=== PATIENT | male | born 1940 | race Caucasian/White ===

== ENCOUNTER 2016-07-07 09:40 | Outpatient (CLI) | payer MEDICARE, BC ==
[2016-07-07 11:04] LABS: Anion Gap 12 mmol/L (10-20); BUN (Urea Nitrogen) 20 mg/dL (8.4-25.7); Calc. Creatinine Clearance 0 mL/min (70-130); Calcium 8.8 mg/dL (7.8-10.44); Carbon Dioxide 26 mmol/L (23-31); Chloride 110 mmol/L (98-107); Estimated GFR-MDRD 69; Glucose 92 mg/dL (83-110); Potassium 4.4 mmol/L (3.5-5.1); Sodium 144 mmol/L (136-145)
[2016-07-07 12:13] LABS: #Basophils 0.1 thou/uL (0.0-0.2); #Lymphocytes 1.5 thou/uL (1.20-3.40); #Monocytes 0.7 thou/uL (0.11-0.59); #Neutrophils 5.2 thou/uL (1.40-6.50); %Basophils 0.7 % (0.0-1.0); %Eosinophils 0.5 % (0.0-10.0); %Monocytes 9.3 % (0.0-10.0); %Neutrophils 69.4 % (42.0-75.0); Hemoglobin 15.6 g/dL (14.0-18.0); Mean Corpuscular HGB CONC 32.1 g/dL (32.0-36.0); Mean Corpuscular Hemoglobin 30.4 pg (27.0-31.0); Mean Corpuscular Volume 94.7 fl (80.0-94.0); Mean Platelet Volume 7.8 fL (7.4-10.4); Platelet Count 194 thou/uL (130-400); RBC Distribution Width 15.2 % (11.5-14.5); Red Blood Cell (RBC) Count 5.16 mill/uL (4.70-6.10); White Blood Cell (WBC) Count 7.5 thou/uL (4.8-10.8)
== END 2016-07-07 09:41 | disposition home or self-care (01) ==
LOC: HPCALD 09:40
PROVIDERS: ATTEND Family Medicine
DX: R31.0 Gross hematuria (principal)
CPT/HCPCS: 36415; 80048; 85025; 87086

== ENCOUNTER 2016-07-12 22:04 | Emergency (ER) | payer MEDICARE, BC ==
[2016-07-12 22:32] LABS: Bilirubin Negative (Negative); Blood, Urine Small (Negative); Clarity Clear (Clear); Glucose, Urine (Dipstick) Negative (Negative); Leukocyte Small (Negative); Nitrite Negative (Negative); Protein, Urine (Dipstick) Negative (Neg-Trace); Urobilinogen 0.2 mg/dL (0.2-1.0)
[2016-07-12 22:40] LABS: Bacteria/HPF 1+ HPF (None Seen); RBC/HPF 0-3 HPF (0-3); Squamous Epithelial 0-3 HPF (0-3)
[2016-07-12] MEDS ORDERED: HYDROcodone/Acetaminophen 10/325 mg Tablet ONE (23:24)
[2016-07-12] MEDS ORDERED: Ketorolac Tromethamine 30 MG/ML VIAL ONE (23:25)
--- NOTE | 2016-07-13 07:03 | CT ---
PRELIMINARY REPORT/[facility]/EMERGENCY AFTER HOURS PROCEDURE: EXAM: CT Abdomen and Pelvis Without Intravenous Contrast CLINICAL HISTORY: 75 years old, male; Pain; Abdominal pain; Flank; Right lower quadrant (rlq); Patient HX: Pt having s harp right flank pain started today. TECHNIQUE: Axial computed tomography images of the abdomen and pelvis without intravenous contrast. This CT exa m was performed using one or more of the following dose reduction techniques: automated exposure con trol, adjustment of the mA and/or kV according to patient size, and/or use of iterative reconstruction technique. Coronal reformatted images were created and reviewed. EXAM DATE/TIME: 07/12/2016 10:34 PM COMPARISON: No relevant prior studies available. FINDINGS: Limitations: Masses and lesions in the solid organs including traumatic injury and vascular and infe ctious pathology can be missed without intravenous contrast. Lower thorax: Right lower lobe 9 mm pulmonary nodule. Small hiatal hernia ABDOMEN: Liver: unremarkable for age Gallbladder and bile ducts: No gallbladder distention. No CBD dilation. Pancreas: unremarkable Spleen: unremarkable Adrenals: unremarkable Kidneys and ureters: Right nephrolithiasis. Mild right hydronephrosis from right UVJ 2 mm stone. Left renal cortical and parapelvic cysts. Stomach and bowel: No obstruction. Appendix: Not seen PELVIS: Bladder: Urinary bladder decompressed Reproductive: Slightly enlarged prostate with hypertrophy of the lobe of Dodie. ABDOMEN and PELVIS: Intraperitoneal space: No ascites. No pneumoperitoneum. Bones/joints: Multiple osteosclerotic foci Soft tissues: Fat enters umbilicus. Vasculature: No abdominal aortic aneurysm. Lymph nodes: Retroperitoneal and pelvic lymphadenopathy most pronounced left iliac chain IMPRESSION: - Right nephrolithiasis. Mild right hydronephrosis from right UVJ 2 mm stone. - Adenopathy and osteosclerosis worrisome for metastatic disease. - Right lower lobe 9 mm pulmonary nodule. Thank you for allowing us to participate in the care of your patient. Dictated and Authenticated by: Haider Land MD 07/12/2016 11:03 PM Central Time ([place] \T\ [place]) FINAL REPORT CT ABDOMEN AND PELVIS WITHOUT CONTRAST: Date: 07/12/16 Comparison made with the 11/22/15 CT of the chest. As noted previously, there is a small nodule in the right lower lobe. It seems slightly larger today and measures about 10.0 mm in size. The fluid collection seen previously along the right posterolat eral hemithorax has resolved. There are no effusions. Right hydronephrosis is present secondary to a small distal right ureteral calculus measuring about 5.0 mm in size near the right UVJ. There is at least one tiny calculus remaining in the right kidney . The left kidney shows some cysts and parapelvic cysts. Without IV contrast, it would be difficult to see any solid masses. The liver, spleen, pancreas, and gallbladder show no acute findings. A tiny right adrenal mass seen on the 2016 study is difficult to assess well in this noncontrast study, but the left adrenal seems to be slightly enlarged. The aorta is normal in caliber. Of considerable concern on this study is abundance of paraaortic and pericaval adenopathy that yamil nues on into the iliac chains bilaterally. In addition, there are several lumbar vertebra that have sclerotic areas within it that are suspicious for metastatic disease. There is considerable degenera tive change throughout the spine otherwise. CT of the pelvis was remarkable for some of the iliac chain adenopathy, some nodes of which are frankie uring up to 3.0 cm in size. Otherwise, no pelvic masses were seen. The patient's prostate seems rath er generous in size and not entirely uniform. It would be worth being checked. IMPRESSION: 1. 5.0 mm distal right ureteral calculus causing mild right hydronephrosis. 2. Tiny, nonobstructing calculus in the right kidney. Multiple cystic areas seen in the left kidney . 3. Abundance of paraaortic and pericaval adenopathy, as well as iliac chain adenopathy. This, taken in conjunction with sclerotic areas seen in the lumbar spine, raise a significant question of metas tatic disease. The prostate, in particular, would be worth checking. 4. 10.0 mm right lower lobe nodule which seems slightly larger than on the 2016 CT of the chest. Findings in agreement with preliminary reading by Kiara. POS: HOME
== END 2016-07-13 | disposition home or self-care (01) ==
LOC: BURERS 22:04
DX: N13.2 Hydronephrosis with renal and ureteral calculous obstruction (principal); I10 Essential (primary) hypertension; Z79.82 Long term (current) use of aspirin; Z79.899 Other long term (current) drug therapy
CPT/HCPCS: 74176; 81003; 81015; 87086; 96372; J1885

== ENCOUNTER 2017-04-25 17:22 | Emergency (ER) | payer MEDICARE, BC ==
[2017-04-25 17:56] LABS: Bilirubin Negative (Negative); Blood, Urine Negative (Negative); Clarity Clear (Clear); Glucose, Urine (Dipstick) Negative (Negative); Leukocyte Small (Negative); Nitrite Negative (Negative); Protein, Urine (Dipstick) Negative (Neg-Trace); Urobilinogen 0.2 mg/dL (0.2-1.0)
[2017-04-25 18:08] LABS: RBC/HPF 0-3 HPF (0-3)
[2017-04-25 18:09] LABS: Bacteria/HPF Rare-Few HPF (None Seen); Crystals/HPF None Seen HPF (Negative); Hyaline Casts/LPF NONE SEEN LPF (0-3 Hyaline); Other Casts/LPF None Seen LPF (0-3 Hyaline); Oval Fat Bodies/HPF None Seen HPF (None Seen); Renal Epithelial None Seen HPF (0-3); Sperm/HPF None Seen HPF (None Seen); Squamous Epithelial 0-3 HPF (0-3); Transitional Epithelial NONE SEEN HPF (0-3); Trichomonas/HPF None Seen HPF (None Seen); Yeast-All Forms None Seen HPF (None Seen)
[2017-04-25] MEDS ORDERED: traMADol HCl 50 MG TAB ONE (18:48)
--- NOTE | 2017-04-25 21:59 | CT ---
CT ABDOMEN AND PELVIS WITHOUT CONTRAST: Date: 04/25/17 Comparison made with the 07/12/16 study. Axial slices were acquired, then coronal and sagittal reconstructions were done. No oral or IV contra st was used. FINDINGS: No infiltrates or effusions seen in the lung bases. There are several small pulmonary nodules seen bi laterally in all lobes. The largest is in the right lower lobe which is 7.0 mm in size. It is actuall y a little smaller than before. The liver, spleen, pancreas, adrenal glands, and aorta show no acute findings. A hiatal hernia is pre sent. There is no obstruction on the right today or renal calculi. There is moderate left hydronephrosis an d hydroureter all the way down to the urinary bladder. Inside the bladder, there appears to be a mass near the left UVJ internally that may be originating from the prostate. In addition to these finding s, there is extensive paraaortic and pericaval adenopathy, as well as iliac adenopathy bilaterally. T hese findings were present before, but have advanced somewhat. The other change between now and then is presence of many more sclerotic areas in the spine and the pelvis. Findings suggest diffuse metast atic disease, probably of a prostatic origin given the sclerotic nature of the findings. There is als o moderately severe spinal stenosis at L4-L5 due to facet and ligamentous hypertrophy and a diffuse b ulging disc. The bowel is nondistended and shows no inflammatory change around it. No free air or free fluid seen. A minimal fat-filled umbilical hernia was present of no concern. There is a little bit of adenopathy in the mesentery. CT of the pelvis was remarkable for the findings already listed above. There were no inflammatory elissa nges or fluid. The prostate is enlarged and irregular. IMPRESSION: 1. Left hydronephrosis and hydroureter that appears to be due to a mass within the urinary bladder, probably of prostatic origin. No evidence of right-sided obstruction. 2. Multiple sclerotic areas in the spine and pelvis consistent with metastatic disease. These have i ncreased in size and number since 2017. 3. Extensive paraaortic and pericaval adenopathy, in addition to iliac adenopathy. Roughly similar t o before, but probably slightly more nevertheless. 4. Spinal stenosis at L4-L5. Findings discussed with Dr. Rosado at 1942 hours on 04/25/17. CODE CR. POS: HOME
== END 2017-04-25 20:32 | disposition home or self-care (01) ==
LOC: BURERS 17:22
DX: M54.5 Low back pain (principal); G89.29 Other chronic pain; C41.4 Malignant neoplasm of pelvic bones, sacrum and coccyx; D49.2 Neoplasm of unspecified behavior of bone, soft tissue, and skin; I10 Essential (primary) hypertension; Z79.82 Long term (current) use of aspirin; Z79.899 Other long term (current) drug therapy
CPT/HCPCS: 74176; 81003; 81015

== ENCOUNTER 2017-09-13 22:37 | Emergency (ER) | payer MEDICARE, BC ==
[2017-09-13] MEDS ORDERED: Fentanyl 100 MCG/2 ML VIAL ONE (22:46)
[2017-09-13 23:09] LABS: ALT (SGPT) 8 U/L (8-55); AST (SGOT) 11 U/L (5-34); Acetaminophen Less than 6.0 mcg/mL (10.0-30.0); Albumin 3.7 g/dL (3.4-4.8); Alkaline Phosphatase 286 U/L (40-150); Anion Gap 19 mmol/L (10-20); BUN (Urea Nitrogen) 33 mg/dL (8.4-25.7); Bilirubin, Total 0.4 mg/dL (0.2-1.2); CK (CPK) 47 U/L (30-200); Calc. Creatinine Clearance 0 mL/min (70-130); Calcium 8.9 mg/dL (7.8-10.44); Carbon Dioxide 19 mmol/L (23-31); Chloride 108 mmol/L (98-107); Estimated GFR-MDRD 38; Globulin 3.5 g/dL (2.4-3.5); Glucose 159 mg/dL (83-110); Lipase 26 U/L (8-78); Potassium 4.6 mmol/L (3.5-5.1); Protein, Total 7.2 g/dL (5.8-8.1); Salicylate Less than 8.0 mg/dL (15.0-30.0); Sodium 141 mmol/L (136-145)
[2017-09-13 23:10] LABS: CKMB 1.1 ng/mL (0-6.6); Troponin I 0.018 ng/mL (< 0.028)
[2017-09-13] MEDS ORDERED: Morphine 10 MG/ML VIAL ONE (23:11)
[2017-09-13 23:15] LABS: Alcohol Less than 10 mg/dL (Less than 10)
[2017-09-13] MEDS ORDERED: Ondansetron HCl/PF 4 MG/2 ML Vial ONE (23:18)
[2017-09-13 23:19] LABS: Anisocytosis SLIGHT = 6-15 cells (100X) (0-5/hpf); Hemoglobin 13.5 g/dL (14.0-18.0); Lymphocytes 43 % (21-51); MDiff Complete? YES; Mean Corpuscular HGB CONC 34.9 g/dL (32.0-36.0); Mean Corpuscular Volume 85.9 fL (78.0-98.0); Mean Platelet Volume 6.3 fL (7.4-10.4); Monocytes 8 % (0-10); Neutrophil 48 % (42-75); PLT Morphology Comment Appears Adequate; Platelet Count 280 thou/uL (130-400); RBC Distribution Width 16.6 % (11.5-14.5); Red Blood Cell (RBC) Count 4.51 mill/uL (4.70-6.10); Small Platelets SLIGHT; White Blood Cell (WBC) Count 10.5 thou/uL (4.8-10.8)
[2017-09-13] MEDS ORDERED: Dexamethasone 4 mg/ml Vial ONE ×2 (23:53)
[2017-09-14] MEDS ORDERED: Fentanyl 100 MCG/2 ML VIAL ONE (00:06)
--- NOTE | 2017-09-14 08:02 | CT ---
PRELIMINARY REPORT/[facility]/EMERGENTY AFTER-HOURS PROCEDURE CT Angiography Chest With Intravenous Contrast CLINICAL HISTORY: 77 years old, male; Signs and symptoms; Dyspnea; Other: Diaphoretic; Patient HX: Diaphoretic rt leg p ain + d dimer; Additional info: Pt has ofelia morales fround out post scan/reviewed patient's previous note s and radiology studies. Patient has advanced metastatic cancer seen on previous studies. Has stevenson cartery been told multiple times about the findings. I reviewed previous findings with the patient and sp ouse. Seems to be some lack of understanding and/or acceptance about the nature and severity of his c ondition. Directly stated the facts to patient and spouse, met with some resistance. TECHNIQUE: Axial computed tomographic angiography images of the chest with intravenous contrast using pulmonary embolism protocol. MIP reconstructed images were created and reviewed. CONTRAST: 100 mL of [id number] administered intravenously. COMPARISON: No relevant prior studies available. FINDINGS: Pulmonary arteries: Unremarkable. No pulmonary embolism. Aorta: Calcifications in the rivera of the aorta and other arteries are consistent with atherosclerosi s. No thoracic aortic aneurysm or dissection is identified. Lungs: Small low density areas adjacent to left subscapularis muscle are likely bullae. Ground glass opacities in the lungs may be due to under expansion and edema. There is evidence of air trapping. Th ere is a consolidation in the left upper lobe. Multiple bilateral pulmonary nodules m 2.1 x 1.4 cm in the left lung base. Pleural space: Unremarkable. No significant effusion. No pneumothorax. Heart: There are widespread coronary artery calcifications. The heart is enlarged. Mediastinum: There is a small hiatal hernia. Thyroid: Subcentimeter thyroid lesions are indeterminate. Bones/joints: There are multiple sclerotic bone lesions. There are degenerative changes in the spine. No acute fracture. No dislocation. Soft tissues: Unremarkable. Lymph nodes: An enlarged mediastinal lymph node measures 1.9 x 1.4 cm. There are confluent enlarged l eft hilar lymph nodes with overall measurements 2.6 x 1.8 cm. IMPRESSION: 1. Multiple bilateral lung nodules consistent with metastases. 2. Widespread osseous metastases. 3. Mediastinal and left hilar lymphadenopathy. 4. No pulmonary embolism identified. 5. No thoracic aortic aneurysm or dissection identified. 6. Additional findings as above. CT Angiography Abdomen and Pelvis With Intravenous Contrast TECHNIQUE: Axial computed tomographic angiography images of the abdomen and pelvis with intravenous contrast. Al l CT scans at this facility use at least one of these dose optimization techniques: automated exposur e control; mA and/or kV adjustment per patient size (includes targeted exams where dose is matched to clinical indication); or iterative reconstruction. 3D reconstructed images were created and reviewed . CONTRAST: 100 mL of [id number] administered intravenously. 100 mL of [id number] administered intravenously. COMPARISON: No relevant prior studies available. FINDINGS: VASCULATURE: Aorta: Calcifications in the rivera of the aorta and other arteries are consistent with atherosclerosi s. No abdominal aortic aneurysm or dissection is identified. Celiac trunk and mesenteric arteries: No acute findings. No occlusion or significant stenosis. Renal arteries: No acute findings. No occlusion or significant stenosis. Iliac arteries: No acute findings. No occlusion or significant stenosis. ABDOMEN: Liver: There is evidence of fatty infiltration of the liver. Gallbladder and bile ducts: Unremarkable. No calcified stones. No ductal dilation. Pancreas: Unremarkable. No ductal dilation. No mass. Spleen: Unremarkable. No splenomegaly. Adrenals: Unremarkable. No mass. Kidneys and ureters: There is severe left hydronephrosis with hydroureter. The cause of ureteral obst ruction is apparently the pelvic mass. Stomach and bowel: Diverticulosis is identified in the colon. No obstruction. No mucosal thickening. PELVIS: Appendix: The appendix is not identified. Bladder: There is a 6.0 x 5.5 cm lobulated mass in the pelvis. It contains calcifications and invades the urinary bladder. Reproductive: See above. ABDOMEN and PELVIS: Intraperitoneal space: Unremarkable. No significant fluid collection. No free air. Bones/joints: There are widespread sclerotic osseous lesions. No acute fracture. No dislocation. Soft tissues: A small hernia in the umbilical area contains fat. Lymph nodes: There is confluent retroperitoneal lymphadenopathy. The largest lymph node measures 3.6 x 2.9 cm. Enlarged bilateral pelvic sidewall lymph nodes measure up to 6.8 x 2.8 cm. There is left in guinal lymphadenopathy. IMPRESSION: 1. Lobulated pelvic mass invading the urinary bladder and causing left ureteral obstruction. 2. Widespread retroperitoneal and pelvic sidewall lymphadenopathy. 3. Widespread osseous metastatic disease. 4. No abdominal aortic aneurysm or dissection identified. 5. Additional findings as above. Thank you for allowing us to participate in the care of your patient. Dictated and Authenticated by: Tramaine Akbar MD 09/14/2017 1:06 AM Central Time ([place] & [place]) FINAL REPORT CT AORTIC DISSECTION PROTOCOL: DATE: 09/13/17. COMPARISON: Comparison is made with the prior study dated 04/25/17. That exam showed diffuse metastatic disease o f the bones, urinary bladder, and extensive adenopathy. FINDINGS: Axial slices were acquired today after giving IV contrast. Coronal and sagittal reconstructions were then done. Because of the findings, the scan covered the entire abdomen and most of the pelvis. There is reasonably good opacification of the aorta that shows no evidence of dissection or aneurysm. Arteriosclerotic change is seen throughout it. There is normal filling of the celiac artery and me senteric arteries. Both renal arteries fill appropriately. The iliac arteries fill appropriately. Thus, there is no sign of aortic disease beyond arteriosclerosis. The thoracic portion of the CT shows several pulmonary nodules, bilateral, with the largest measuring about 2 cm in the left upper lobe. There is significant adenopathy present with 1 node just lateral to the aortic arch measuring up to about 8.4 cm in size. There is a density adjacent to this that i s probably collapsed atelectatic lung. There are no effusions. No filling defects were seen in the pulmonary arteries to suggest emboli. No pericardial effusion is seen.. Areas of sclerosis and a fe w lytic areas are seen within bone, spine, and ribs, consistent with metastatic disease. The abdominal portion of the CT suggests a small hiatal hernia. No focal hepatic mass was seen. Gal lbladder appears normal as does the pancreas and spleen. There appears to be a small 2 cm mass in th e right adrenal gland that I do not appreciate on the April study and there may be a small one on the left. The right kidney showed no acute change. The left kidney shows longstanding hydronephrosi s and thinning of its cortex. There is massive paraaortic and pericaval adenopathy as before. This continues down into the pelvis with large amounts of iliac adenopathy, more on the left than the righ t. CT of the pelvis shows the large mass protruding into the urinary bladder, probably of prostatic orig in with adjacent severe adenopathy. Some kym groups are as big as 5-6 cm in size. No free fluid i s seen. There are advanced changes of metastatic disease in the bony pelvis and lumbar spine consist ing of lytic or sclerotic lesions, mainly sclerotic. There is severe spinal stenosis at the L4-L5 le julieta. Otherwise, I do not see any gross spinal canal obstruction. IMPRESSION: 1. No evidence of aortic dissection or aneurysm. 2. Evidence of diffuse metastatic disease including pulmonary nodules, changes in the bones, and calli nopathy. 3. Enlarged nodes are most prominent in the paraaortic, pericaval, and iliac chains, particularly th e left iliac region. There are also mesenteric nodes present as well as mediastinal nodes. 4. Severe spinal stenosis of L3-L4. 5. Severe left hydronephrosis, longstanding, due to mass in the urinary bladder that is most likely of prostatic origin. Note, overall, the appearance of these findings has increased and worsened since the 04/25/17 scan. N odes are more numerous and larger and there are more bony lesions than before. Report in agreement with preliminary reading by [facility]. POS: HOME
== END 2017-09-14 00:50 | disposition short-term general hospital (02) ==
LOC: BURERS 22:37
DX: G95.20 Unspecified cord compression (principal); E78.5 Hyperlipidemia, unspecified; I10 Essential (primary) hypertension; Z79.82 Long term (current) use of aspirin; Z79.899 Other long term (current) drug therapy
CPT/HCPCS: 71275; 80053; 80307; 82550; 82553; 83605; 83690; 84484; 85025; 85379; 93005; 96361; 96374; 96375; 96376; J1100; J2270; J2405; J3010

== ENCOUNTER 2017-09-28 16:52 | Emergency (ER) | payer MEDICARE, BC ==
[2017-09-28] MEDS ORDERED: Acetaminophen 500 MG TAB ONE (17:12)
[2017-09-28 17:21] LABS: #Monocytes 0.3 thou/uL (0.11-0.59); #Neutrophils 9.6 thou/uL (1.40-6.50); %Basophils 0.4 % (0.0-1.0); %Eosinophils 0.4 % (0.0-10.0); %Lymphocytes 9.4 % (21.0-51.0); %Monocytes 3.1 % (0.0-10.0); %Neutrophils 86.8 % (42.0-75.0); Hemoglobin 11.2 g/dL (14.0-18.0); Mean Corpuscular HGB CONC 34.8 g/dL (32.0-36.0); Mean Corpuscular Hemoglobin 29.7 pg (27.0-31.0); Mean Corpuscular Volume 85.2 fL (78.0-98.0); Mean Platelet Volume 6.4 fL (7.4-10.4); Platelet Count 302 thou/uL (130-400); RBC Distribution Width 16.3 % (11.5-14.5); Red Blood Cell (RBC) Count 3.77 mill/uL (4.70-6.10); White Blood Cell (WBC) Count 11.1 thou/uL (4.8-10.8)
[2017-09-28 17:39] LABS: ALT (SGPT) 37 U/L (8-55); AST (SGOT) 12 U/L (5-34); Albumin 3.2 g/dL (3.4-4.8); Alkaline Phosphatase 298 U/L (40-150); Anion Gap 18 mmol/L (10-20); BUN (Urea Nitrogen) 60 mg/dL (8.4-25.7); Bilirubin, Total 0.5 mg/dL (0.2-1.2); Calc. Creatinine Clearance 0 mL/min (70-130); Carbon Dioxide 21 mmol/L (23-31); Chloride 108 mmol/L (98-107); Estimated GFR-MDRD 26; Globulin 2.8 g/dL (2.4-3.5); Glucose 104 mg/dL (83-110); Sodium 142 mmol/L (136-145)
[2017-09-28 17:40] LABS: CKMB 1.3 ng/mL (0-6.6); Troponin I 0.017 ng/mL (< 0.028)
[2017-09-28 18:10] LABS: Bilirubin Negative (Negative); Blood, Urine Trace (Negative); Clarity Cloudy (Clear); Glucose, Urine (Dipstick) Negative (Negative); Leukocyte Large (Negative); Nitrite Negative (Negative); Protein, Urine (Dipstick) Negative (Neg-Trace); Urobilinogen 0.2 mg/dL (0.2-1.0); pH, Urine 5.5 (5.0-9.0)
[2017-09-28 18:14] LABS: Bacteria/HPF 1+ HPF (None Seen); Crystals/HPF None Seen HPF (Negative); Hyaline Casts/LPF NONE SEEN LPF (0-3 Hyaline); Other Casts/LPF None Seen LPF (0-3 Hyaline); Oval Fat Bodies/HPF None Seen HPF (None Seen); RBC/HPF 0-3 HPF (0-3); Renal Epithelial None Seen HPF (0-3); Sperm/HPF None Seen HPF (None Seen); Squamous Epithelial None Seen HPF (0-3); Transitional Epithelial NONE SEEN HPF (0-3); Trichomonas/HPF None Seen HPF (None Seen); Yeast-All Forms None Seen HPF (None Seen)
[2017-09-28] MEDS ORDERED: cefTRIAXone\\ROCEPHIN 1 GM VIAL ONE (18:22)
--- NOTE | 2017-09-28 21:18 | RAD ---
PORTABLE CHEST 09/28/17 Moderate cardiomegaly is present but the vessels do not seem congested. There are no large effusions. There is a very small amount of streaking in the lung bases bilaterally. It would be premature to co nfidently diagnose a pneumonia, through the areas might bear followup film. There are a few areas in the ribs that may be sclerotic. The patient has known osseous metastases. IMPRESSION: 1. Mild cardiomegaly without congestive change. 2. Minor basilar haziness which may or may not be significant. POS: HOME
== END 2017-09-28 20:17 | disposition short-term general hospital (02) ==
LOC: BURERS 16:52
DX: N39.0 Urinary tract infection, site not specified (principal); C61 Malignant neoplasm of prostate; E78.5 Hyperlipidemia, unspecified; I10 Essential (primary) hypertension; Z79.891 Long term (current) use of opiate analgesic; Z79.899 Other long term (current) drug therapy
CPT/HCPCS: 71045; 80053; 81003; 81015; 82553; 83605; 83880; 84484; 85025; 87040; 87077; 87086; 87149; 87186; 93005; 96361; 96374; J0696

== ENCOUNTER 2019-10-10 08:12 | Emergency (ER) | payer MEDICARE, BC ==
[2019-10-10] MEDS ORDERED: Furosemide 100 MG/10 ML VIAL ONE (08:53)
[2019-10-10 09:14] LABS: #Basophils 0.1 thou/uL (0.0-0.2); #Eosinphils 0.1 thou/uL (0.0-0.7); #Lymphocytes 0.6 thou/uL (1.20-3.40); #Monocytes 0.4 thou/uL (0.11-0.59); %Basophils 1.6 % (0.0-1.0); %Eosinophils 1.8 % (0.0-10.0); %Lymphocytes 10.9 % (21.0-51.0); %Monocytes 7.6 % (0.0-10.0); %Neutrophils 78.1 % (42.0-75.0); ALT (SGPT) 16 U/L (8-55); AST (SGOT) 15 U/L (5-34); Albumin 3.4 g/dL (3.4-4.8); Alkaline Phosphatase 369 U/L (40-110); Anion Gap 14 mmol/L (10-20); BUN (Urea Nitrogen) 24 mg/dL (8.4-25.7); Bilirubin, Total 0.5 mg/dL (0.2-1.2); Calc. Creatinine Clearance 0 mL/min (70-130); Calcium 8.2 mg/dL (7.8-10.44); Carbon Dioxide 22 mmol/L (23-31); Chloride 111 mmol/L (98-107); Estimated GFR-MDRD 49; Globulin 2.5 g/dL (2.4-3.5); Glucose 153 mg/dL (83-110); Hemoglobin 9.1 g/dL (14.0-18.0); Mean Corpuscular HGB CONC 28.4 g/dL (32.0-36.0); Mean Corpuscular Hemoglobin 25.3 pg (27.0-31.0); Mean Platelet Volume 8.8 fL (7.4-10.4); Platelet Count 226 thou/uL (130-400); Potassium 4.1 mmol/L (3.5-5.1); Protein, Total 5.9 g/dL (5.8-8.1); RBC Distribution Width 18.8 % (11.5-14.5); Sodium 143 mmol/L (136-145); White Blood Cell (WBC) Count 5.2 thou/uL (4.8-10.8)
[2019-10-10] MEDS ORDERED: Aspirin Chewable 81 MG TAB ONE (09:25)
[2019-10-10 09:28] LABS: Hypochromia SLIGHT = 6-15 cells (100X) (0-5/hpf); MDiff Complete? YES; Platelet Morphology Comment Appears Adequate
[2019-10-10 09:34] LABS: CKMB 4.1 ng/mL (0-6.6)
--- NOTE | 2019-10-10 19:28 | RAD ---
LEFT KNEE 4 VIEWS: Date: )10/10/2019 Swelling and reticulation of soft tissues is seen around the knee, especially laterally. There is poncho rly complete loss of the lateral joint space, even more so than was present on a 06/15/2017 film of t he leg. No clear fracture was noted. There was a small bulbous projection from the medial tibial plat eau, but looking at all other views, this does not appear to be definitely fractured. There is no lar ge joint effusion. Mild patellofemoral osteophytes represent. There is very slight lateral subluxatio n of the femoral condyles on the tibial plateau, probably a longstanding problem. This does not appea r much different than the 2018 film of the leg. IMPRESSION: Further narrowing of the lateral joint space and surrounding soft tissue swelling. POS: HOME
--- NOTE | 2019-10-10 19:30 | RAD ---
PORTABLE CHEST: Date: 10/10/2019 An AP portable film at 0828 hours is compared with the 09/28/2017 study. Mild cardiomegaly is about the same as before. Vessels are not clearly congested. There is a little s treaking in the right base that may be a minor infiltrate or even some fluid. The left lung is relati vely clear for a portable film and the patient being turned slightly. IMPRESSION: Mild cardiomegaly without clear congestive change. Minor right basilar streaking and/or fluid. POS: HOME
== END 2019-10-10 10:30 | disposition short-term general hospital (02) ==
LOC: BURERS 08:12
DX: I21.4 Non-ST elevation (NSTEMI) myocardial infarction (principal); I50.9 Heart failure, unspecified; I11.0 Hypertensive heart disease with heart failure; S89.92XA Unspecified injury of left lower leg, initial encounter; E78.5 Hyperlipidemia, unspecified; Z79.899 Other long term (current) drug therapy; W17.89XA Other fall from one level to another, initial encounter
CPT/HCPCS: 71045; 80053; 82553; 83605; 83880; 84443; 84484; 85025; 87040; 93005; 94760; 96374; J1940

== ENCOUNTER 2020-01-03 18:14 | Observation (INO) | payer MEDICARE, BC ==
[2020-01-03 19:02] LABS: #Eosinphils 0.1 thou/uL (0.0-0.7); #Monocytes 0.5 thou/uL (0.11-0.59); #Neutrophils 5.1 thou/uL (1.40-6.50); %Basophils 0.7 % (0.0-1.0); %Eosinophils 1.4 % (0.0-10.0); %Lymphocytes 15.2 % (21.0-51.0); %Monocytes 7.9 % (0.0-10.0); %Neutrophils 74.8 % (42.0-75.0); ALT (SGPT) Less than 7 U/L (8-55); AST (SGOT) 24 U/L (5-34); Albumin 3.7 g/dL (3.4-4.8); Alkaline Phosphatase 641 U/L (40-110); Anion Gap 17 mmol/L (10-20); BUN (Urea Nitrogen) 30 mg/dL (8.4-25.7); Bilirubin, Total 0.4 mg/dL (0.2-1.2); Calc. Creatinine Clearance 0 mL/min (70-130); Calcium 8.7 mg/dL (7.8-10.44); Carbon Dioxide 28 mmol/L (23-31); Chloride 98 mmol/L (98-107); Globulin 3.2 g/dL (2.4-3.5); Glucose 119 mg/dL (83-110); Hemoglobin 9.7 g/dL (14.0-18.0); Lipase 5 U/L (8-78); MDiff Complete? YES; Mean Corpuscular HGB CONC 28.9 g/dL (32.0-36.0); Mean Corpuscular Hemoglobin 24.5 pg (27.0-31.0); Mean Corpuscular Volume 84.6 fL (78.0-98.0); Mean Platelet Volume 7.5 fL (7.4-10.4); Ovalocytes SLIGHT = 2-5 cells (100X) (0-1/hpf); Platelet Count 248 thou/uL (130-400); Poikilocytosis SLIGHT = 6-15 cells (100X) (0-5/hpf); Potassium 3.9 mmol/L (3.5-5.1); Protein, Total 6.9 g/dL (5.8-8.1); RBC Distribution Width 19.7 % (11.5-14.5); Red Blood Cell (RBC) Count 3.96 mill/uL (4.70-6.10); Schistocytes SLIGHT = 2-5 cells (100X) (0-1/hpf); Sodium 139 mmol/L (136-145); Tear Drops SLIGHT = 2-5 cells (100X) (0-1/hpf); White Blood Cell (WBC) Count 6.8 thou/uL (4.8-10.8)
[2020-01-03 19:20] LABS: CKMB 1.3 ng/mL (0-6.6)
[2020-01-03] MEDS ORDERED: HYDROcodone/Acetaminophen 5/325 mg Tablet ONE (19:52)
[2020-01-03 19:53] LABS: Bilirubin Negative (Negative); Blood, Urine Negative (Negative); Clarity Clear (Clear); Glucose, Urine (Dipstick) Negative (Negative); Ketone, Urine Negative (Negative); Leukocyte Negative (Negative); Nitrite Negative (Negative); Protein, Urine (Dipstick) Negative (Neg-Trace); Urobilinogen 0.2 mg/dL (Less than 2)
--- NOTE | 2020-01-03 20:48 | RAD ---
LUMBAR SPINE THREE VIEWS: 01/03/20 While no fracture is seen, there are diffuse sclerotic lesions throughout the entire lumbosacral spin e and pelvis. The findings are consistent with the known metastatic diagnosis. The disc spaces are no rmal in height. The aorta and iliac arteries are densely calcified. A moderate amount of fecal materi al is seen in the right colon. IMPRESSION: No fractures, but numerous sclerotic metastatic foci are seen in the lumbosacral spine and pelvis. POS: HOME
--- NOTE | 2020-01-03 20:56 | CT ---
CT OF THE BRAIN WITHOUT CONTRAST: 01/03/20 Comparison is made with the prior study dated 10/10/19. The ventricles are normal in size for age and atrophy. Deep white matter lucency is typical of chroni c microvascular ischemia. There are also more focal low density lesions consistent with lacunar infar cts, especially in the right thalamus, left basal ganglia and left centrum semiovale. No bleeding, ma ss, or edema was seen. None of these findings seem much different than on the prior exam. No destruct silvia lesions are seen in the skull. The paranasal sinuses are clear. A few of the mastoid air cells ar e semiopaque. IMPRESSION: Chronic ischemic changes, including several areas of focal lacunar infarcts. No acute intracranial fi ndings. Preliminary report discussed with Dr. Winters at 1912 on 01/03/20. POS: HOME
[2020-01-03 21:36] LABS: Troponin I 0.034 ng/mL (< 0.028)
[2020-01-03 23:10] VITALS: BMI 33.4
[2020-01-04] MEDS: HYDROcodone/Acetaminophen 5/325 mg Tablet PO PRN ×4 (00:44→23:35)
[2020-01-04] MEDS: Tamsulosin HCl 0.4 MG CAP PO SCH ×2 (08:32→21:03)
[2020-01-04] MEDS: Furosemide 40 MG TAB PO SCH ×2 (08:32→21:03)
[2020-01-04] MEDS: Carvedilol 3.125 MG TAB PO SCH ×2 (08:32→21:03)
--- OUTSIDE RECORDS SUMMARY | 2020-01-04 12:46 | XMS | Patient Health Record ---
:1940 Author Organization [facility] Address [address] [place] [address] Care Team Providers Name Role Phone Seneff Unavailable [phone] Fernando Unavailable [phone] Parrent Unavailable [phone] Maraist Unavailable [phone] Toshia Unavailable [phone] De Luna Unavailable [phone] PROBLEMS Type Condition ICD9-CM [id number] Onset Condition SNOMED Code Notes Code Code Dates Status Problem Essential 401.1 Active 8044902 hypertension, benign Problem Iron deficiency 280.9 Active 30954951 anemia Problem *x*Seroma T14.8 Active 375799465 Problem Other N13.39 Active 66392924 hydronephrosis Problem Lymphadenopathy R59.1 Active 16660005 Problem Soft tissue mass M79.9 Active 153219866 Problem Elevated PSA R97.20 Active 867215371 Problem Noncompliance Z91.19 Active 5964239 Problem Metastatic C79.82 Active 57045811 malignant neoplasm to prostate ALLERGIES No Known Allergies ENCOUNTERS from 1940 to 2020-01-04 Encounter Location Date Provider Diagnosis [facility] Chronic Heart [address] [facility] [place] [address] Oct, 2019 [place] [address] IMMUNIZATIONS Vaccine Route Administration Date Status Dexamethasone Unknown Feb 05, 2012 Administered SOCIAL HISTORY Sex Assigned At : Social History Observation Description Sex Assigned At Unknown REASON FOR REFERRAL from 1940 to 2020-01-04 Referring Provider First Name Alice Referring Provider Last Name Fernando Referring Provider Specialty Urology Referring Provider email Referred Provider [facility] stem, Medical Records VITAL SIGNS from 1940 to 2020-01-04 Weight 190 lbs Oct, Height 66 in Oct, BMI 30.66 kg/m2 Oct, Heart Rate 72 /min Oct, Temperature 98.1 degrees Fahrenheit Oct, Oximetry 96% RA % Jan, Respiratory Rate 18 /min Jan, Blood pressure systolic 140 mm Hg Oct, Blood pressure diastolic 70 mm Hg Oct, MEDICATIONS Medication SIG (Take, Route, Start Date End Date Status Frequency, Duration) Lyrica 25 MG 2 capsules Orally Once a Act silvia day [place] 10-325 MG 1-2 tablets Orally every Not-Taking four to six hours prn for pain Docusate Sodium 100 MG 1 capsule as needed Orally Active Once a day Casodex 50 MG 1 tablet Orally Once a day Active Tramadol HCl 50 MG 1 tablet as needed Orally Active every 6 hrs Flomax 0.4 MG 1 capsule Orally twice a Ac tive day Aspirin 325 MG 1 tablet Orally Once a day Not-Taking Finasteride 5 MG 1 tablet Orally Once a day Active Losartan Potassium 50 mg 1 tablet Orally Once a day Jan, Not-Taking Bicalutamide 50 MG 1 tablet Orally Once a day Active Amlodipine Besylate 10 mg 1 tablet Orally Once a day Jan, Not-Taking Lupron Not-Taking FeroSul 325 mg once a day Orally Active PROCEDURES No Information RESULTS No Results REASON FOR VISIT referral, Casodex/FU (LM X 3), Hospital FU, pflow/pvr, Hospital fu , to discuss symptoms, r/s appt, needs MRI orders, Appt complaints/concerns, wanting to talk to someone, Maraist/MCR,BCBS/LBP, MRIwith Contrast, MRI Scheduling, NEURO EVAL/LEG PAIN, unable to urinate, Cx MACHINE MAINTENANCE SERVICER appt, Mass in back, Mass in back, Mass in back, Mass in back, REFILLS RX, [facility] follow up - 02-19-12- anemia, HGB,NON FASTING LAB, Patient wants to speak to you about referral, Iron Deficiency Anemia, UTI, Follow up - uticaria, ED Follow up - iron def anemia, Follow up - urticaria and hypertension, Weakness, shakes, DISC MEDS-PLEASE CALL, Rash, REFILL MEDS, REFILL ALL MEDS MEDICAL (GENERAL) HISTORY Type Description Date Medical History Hypertension Medical History metastatic prostate cancer Surgical History appendectomy childhood Surgical History mass on back Hospitalization History [facility] snake bite 1954 Hospitalization History surgery related Hospitalization History sepsis with hydronephrosis 09/2017 Goals Section No Information Health Concerns No Information MEDICAL EQUIPMENT No Information MENTAL STATUS No Information FUNCTIONAL STATUS No Information ASSESSMENTS Encounter Date Diagnosis Notes Jan, Iron deficiency anemia (ICD9-CM - 280.9) Apr, Soft tissue mass (ICD-10 - M79.9) Oct, Lymphadenopathy (ICD-10 - R59.1) Jan, Iron deficiency anemia (ICD9-CM - 280.9) Jan, Urticaria (ICD9-CM - 708.9) Jan, Lightheaded (ICD9-CM - 780.4) Oct, Noncompliance (ICD-10 - Z91.19) June, Spinal stenosis at L4-L5 level (ICD-10 - M48.061) Oct, Other hydronephrosis (ICD-10 - N13.39) Nov, *x*Seroma (ICD-10 - T14.8) Jan, Hypertension (ICD9-CM - 401.9) June, Spinal stenosis at L4-L5 level (ICD-10 - M48.061) Oct, Elevated PSA (ICD-10 - R97.20) Jan, Iron deficiency anemia (ICD9-CM - 280.9) Oct, *x*Seroma (ICD-10 - T14.8) Jan, Hypertension (ICD9-CM - 401.9) Jan, Urticaria (ICD9-CM - 708.9) Jan, Urticaria (ICD9-CM - 708.9) Jan, Tachycardia (ICD9-CM - 785.0) Jan, Iron deficiency anemia (ICD9-CM - 280.9) May, Essential hypertension, benign (ICD9-CM - 401.1) Oct, Iron deficiency anemia (ICD9-CM - 280.9) Apr, *x*Seroma (ICD-10 - T14.8) Oct, Metastatic malignant neoplasm to prostat e (ICD-10 - C79.82) Jan, Urticaria (ICD9-CM - 708.9) Jan, Iron deficiency anemia (ICD9-CM - 280.9) PLAN OF TREATMENT Treatment Notes Assessment Notes Clinical Notes *x*Seroma Follow up 3 months to confirm this seroma that is likely post-traumatic is gone. Other hydronephrosis As previously revie w with patient in detail, progression of renal failure reviewed. He has previously and yamil nues to decline nephrosto my tube, ureter stent n ot advised due to obstr ucting tumor. Soft tissue mass The seroma is gone. No further treatment or surgery needed. He has a small lipoma at the lowest aspect of the previous seroma location. No excision needed unless it enlarges or becomes more symptomatic. Iron deficiency anemia Will review stool occult blood cards when results recieved. Will need to be set up for colonoscopy. In the meantime, will recheck CBC to make sure stable. Urticaria Continue Benadryl as needed for itching and rash. Notify or go to ED for any tongue swelling or respiratory difficulty. Iron deficiency anemia Pt. will contact us after the first of the year to set up his gastroenterology appointment (resume referral). He has been counseled the importance of further work-up for his anemia, as even in the event that his CBC has dramatically improved, it doesn't explain the cause. If colonoscopy negative, will need to see rf manager. *x*Seroma I suspect resolving hematoma/seroma. Plan f/u in 2 weeks to re assess. He may need another drainage procedure Essential hypertension, Monitor blood pressure reading benign as an outpatient. Notify for average SBP>140 or DBP>90.Compliance recommended with no added salt diet.Moderate aerobic exercise, recommended as tolerated.Defers pneumovax at this time. Lightheaded Treatment pending results. Metastatic malignant neoplasm 77-year-ol d male seen as to prostate an inpatient consult ation with grossly elevate d PSA >2200 consistent wit h metastatic prostate cancer, imaging demonstrated diffuse metastatic disease, hydronephrosis due t o obstructing tumor. H ad incomplete void reso lved with Flomax twice a day, continues to take Ca sodex which is refilled by his PCP. Patient decline s physical exam, encou rage patient as previous to follow-up with medic al oncology for Lupron. He continues to say carmelo t he will, however has no t followed through. Extensive time spent with patient and rel ating previous imaging, PS A results consistent w ith metastatic prostate cancer. I did expres s my concern regarding th eir denial of treatment and denial of their diag nosis. I offered patient Lilliana pron in my office, follow -up PSA, he declined. I offered patient that I would call Dr. Slick zamudio to schedule follow-up appointment which is also declined as well. We discussed alternativ dinora, bilateral orchiectom y for surgical castration, however would prefer biopsy prior to orchiectomy. He decl gisele prostate biopsy, alternative options of bilateral orchiectom y. As such I informed the patient that he may contact me if he elissa nges his mind .. Gave him prn appt with me as he i s declining treatment. Patient's poor progn osis was reviewed with cristian whitehead and in detail, questions were encou raged and answered to du watkins. Hypertension Monitor blood pressure reading as an outpatient. Notify for average SBP>140 or DBP>90. DASH diet. Tachycardia Recommend further work-up including CXR, CBC, TSH, CMP, EKG, cardiac enzymes, BNP in ED setting. Spoke with Dr. Ricardo, [facility] ED Physician who will work-up patient further. Urticaria Will remain off ERICH inhibitor for now. Referrals Referral Date Details 2012-03-02 2012-03-02, Iron Deficiency Anemia|Needs Colonoscopy, Stuart Perezm emr transfer Mass in back, [address] , [place], [address], Unable to urinate, [address], [place], [address], L[facility] at [address], Deon Fiore, [address], [place], [address], HEART FAILURE, Talisha Mynorf, [address], [place], [address], Insurance Providers Payer Name Payer Address Payer Insured Patient Coverage Cover age Phone Name Relationship to Start Date End Date Insured Medicare [address] ATTN [phone] Nasim Thacker 2006 [employer] B Claims [id number] [place] [id number] [facility] [address] [phone] Nasim Thacker 2005 [facility] [address] [facility] [id number]"
[2020-01-04 17:04] LABS: SARS-CoV-2 MS2 Positive; SARS-CoV-2 N Gene Negative; SARS-CoV-2 S Gene Negative; SARS-CoV-2 by NAA Not Detected (NotDetected); SARS-CoV-2 orf1ab Negative
[2020-01-04] MEDS: Aspirin Chewable 81 MG TAB PO SCH (21:03)
[2020-01-04] MEDS: Cyanocobalamin (Vitamin B-12) 1,000 MCG TAB PO SCH (21:03)
[2020-01-04] MEDS: Enoxaparin Sodium 40 MG/0.4 ML SYRINGE SC SCH (21:49)
[2020-01-04] MEDS: BICALUTAMIDE 50 MG PO SCH (21:50)
[2020-01-05] MEDS: Acetaminophen/Codeine 30-300mg Tablet PO PRN (02:53)
--- NOTE | 2020-01-05 04:27 | HP ---
PRIMARY CARE PHYSICIAN: Annie Martin DO CHIEF COMPLAINT: Sudden onset of loss of strength and sensation of bilateral lower extremities. HISTORY OF PRESENT ILLNESS: Mr. Thacker is a 79-year-old gentleman with coronary artery disease, ischemic cardiomyopathy with ejection fraction of 40%, hyperlipidemia, hypertension, and prostate cancer with metastasis to multiple sites including bone and spine, on Casodex, under the care of Dr. Champion at [facility]. His condition started in 2017 when he presented to Urology Clinic with significantly high PSA of 852, consistent with prostate cancer with metastatic lesions. He did not have a prior biopsy. He was seen by Dr. Martin in April of 2017. He was advised Lupron, immunotherapy (Zytiga), and prednisone; however, he was lost to follow up and admitted that he cannot afford Zytiga. The patient presented to [facility] on 09/14/2017, complaining of bilateral lower extremity discomfort described as burning pain down the back of his legs. He was seen by Dr. Peralta and Neurosurgery, and discussed with the patient that these symptoms were likely secondary to metastatic disease. He was also seen by Dr. King, and advised him to initiate palliative therapy for metastatic prostate cancer. He was offered a prostate biopsy, but he declined. He was repeatedly advised by the specialist regarding poor prognosis of his prostate cancer due to widespread metastatic lesions. He was referred for palliative care. Further review of medical records showed multiple imaging consisting of CT in April 2017, demonstrating extensive lymphadenopathy of the paraaortic, paracaval iliac nodes, multiple sclerotic areas of the spine and pelvis consistent with diffuse metastatic disease, presence of L4-L5 stenosis. CT scan on 09/13/2017, showed multiple bilateral lung nodules consistent with widespread osseous metastatic disease. He had mediastinal and left hilar lymphadenopathy. Prostate was irregular with lobulated mass in the bladder extending from prostate consistent with local invasion. The patient had an MRI, 08/30/2017, that showed abnormal signal of L5 vertebral body suspicious for pathologic fracture from bony metastatic disease. He had marked lymphadenopathy. According to patient, since then, he has been confined to a wheelchair. However, he thought this was secondary to advanced bilateral knee osteoarthritis. According to patient, his specialist from [facility] refused to prescribe him Casodex, hence he transferred care to [facility] with Dr. Champion (oncologist). He has not done any additional imaging recently. The patient was admitted for acute on chronic congestive heart failure recently, and had CT of the abdomen and pelvis that showed bilateral pleural effusion, resolution of pleural-based nodular lesion of the left lung. However, he had interval development of prominent nodular thickening involving adrenal glands. There were also noted diffuse osseous metastatic disease. The patient was under home health for physical therapy. He was also advised recently by his PCP to undergo cardiac outpatient rehab. Unfortunately, prior to admission, he had difficulty with transfers and sudden weakness, hence evaluation at the ED and subsequent admission on January 03, 2020. PAST MEDICAL HISTORY: 1. Coronary artery disease. 2. Congestive heart failure, systolic dysfunction with EF of 40%. 3. Hyperlipidemia. 4. Hypertension. 5. Metastatic prostate cancer. 6. Nephrolithiasis. 7. Noncompliance. PAST SURGICAL HISTORY: Appendectomy. SOCIAL HISTORY: The patient drinks socially. Denies tobacco or illicit drug use. FAMILY HISTORY: Noncontributory. MEDICATIONS: 1. Dulcolax 5 mg daily as needed. 2. Colace 100 mg daily. 3. Vitamin B12 at bedtime. 4. Tylenol with Codeine one tablet every 12 hours p.r.n. 5. Flomax 0.4 mg b.i.d. 6. Coreg 3.125 p.o. b.i.d. 7. Lasix 40 mg b.i.d. 8. Casodex 50 mg at bedtime. 9. Aspirin 81 mg daily. ALLERGIES: ERICH INHIBITORS, AMITRIPTYLINE, VALSARTAN, HCTZ. REVIEW OF SYSTEMS: GENERAL: Negative for fever, chills. Recently tested negative for COVID-19. HEENT: Positive for blurred vision. Positive for hearing loss. CARDIOVASCULAR: Negative for chest pain. Negative for cyanosis. RESPIRATORY: Negative for cough, shortness of breath, or wheezing. GI: Positive for constipation. Negative for diarrhea. GENITOURINARY: Positive for urinary frequency, positive for urinary retention. MUSCULOSKELETAL: Bilateral lower extremity weakness and numbness. Positive for ribcage pain. SKIN: Negative for lesions or itching. PHYSICAL EXAMINATION: VITAL SIGNS: Blood pressure of 110/59, temperature 98, pulse of 72, R of 16, O2 saturation 100%. GENERAL: Patient is obese, not in distress. Afebrile. HEENT: Normocephalic, atraumatic. Pupils equally reactive to light. The patient has mask due to COVID-19. NECK: Supple. Negative for lymphadenopathy. Negative for jugular venous distention. CHEST AND LUNGS: Symmetrical expansion, decreased breath sounds due to body habitus. CARDIOVASCULAR: Regular rate, rhythm. Negative for murmur, rubs, or gallops. ABDOMEN: Distended. Normoactive bowel sounds. He has numbness on bilateral rib cage. MUSCULOSKELETAL: Spontaneous movement on bilateral upper extremities, symmetrical. Positive for marked loss of strength of bilateral lower extremities. NEUROLOGIC: Oriented x3, significant for numbness at level of T6. Gait not assessed due to weakness of bilateral lower extremities. PSYCH: Slightly depressed. Denies homicidal or suicidal ideations. LABORATORY DATA: CBC: Hemoglobin of 9.7, hematocrit of 33.5, platelet of 248. Comprehensive metabolic panel: Sodium of 139, potassium of 3.9, BUN of 30, creatinine of 1.40, glucose of 119, lactic acid of 1.6, AST of 24, ALT of 7, alkaline phosphatase of 641, CK-MB of 1.3. Troponin 0.048 and 0.034. Urinalysis negative. IMAGING: Brain CT scan, 01/03/2020, ventricles normal in size for age and atrophy. Presence of deep white matter lucency, typical of chronic microvascular ischemia. There are also more focal low-density lesions consistent with lacunar infarcts in the right thalamus, left basal ganglia and left centrum semiovale. No bleeding, mass, or edema. Chronic ischemic changes including several areas of focal ulnar infarcts. No acute intracranial findings. Lumbar spine x-ray showed no fractures, but numerous sclerotic metastatic foci seen in the lumbosacral spine and pelvis. IMPRESSION: 1. A 79-year-old presented with sudden onset of bilateral lower extremity weakness and numbness secondary to prostate cancer metastasis with metastatic spinal cord compression. Admitted for physical deconditioning and possible rehab. 2. Congestive heart failure, systolic dysfunction with ejection fraction of 40%. 3. Coronary artery disease. 4. Hypertension. 5. Hyperlipidemia. 6. Anemia. 7. Acute renal insufficiency. 8. Noncompliance for treatment of prostate cancer. 9. Full code. PLAN: 1. Obtain CT of the thoracic spine with contrast. 2. Prednisone to help reduce swelling and pressure. Reconcile home medications. 3. We will discuss with his oncologist at [facility] for possible radiotherapy versus surgery to treat metastatic spinal cord compression. 4. Prognosis is poor. 5. Code status, full code. Job ID: [id number] MTDD
[2020-01-05] MEDS: HYDROcodone/Acetaminophen 5/325 mg Tablet PO PRN ×3 (07:42→20:50)
[2020-01-05] MEDS: Tamsulosin HCl 0.4 MG CAP PO SCH ×2 (09:16→20:51)
[2020-01-05] MEDS: Furosemide 40 MG TAB PO SCH (09:17)
[2020-01-05] MEDS: Carvedilol 3.125 MG TAB PO SCH ×2 (09:17→20:51)
--- NOTE | 2020-01-05 13:21 | CT ---
CT OF THE THORACIC SPINE: Date: 01/05/[address] of the thoracic spine was done on this patient with a T6 level and known metastatic disease to bone from the prostate. The scan was done with IV contrast. No fracture or collapse of any vertebra was seen. There are diffuse sclerotic metastases in all visib le vertebra and the visible portions of each rib. The spinal canal appears maintained throughout. The re are no areas of obvious mass or restriction of the canal. No enhancing lesions were seen within th e canal. No masses of concern outside of the vertebra are seen. Of all the vertebra, the T5 vertebra seems most involved by the sclerotic metastasis. Looking for any foraminal encroachment will be very difficult in this case. IMPRESSION: Diffuse sclerotic metastases without evidence for gross spinal canal compromise. Since the patient is experiencing neurological symptoms, a MRI with and without contrast would be the most sensitive way to detect more subtle neurological compromise. Preliminary report taken to the floor at approximately 10:00 a.m. on 01/05/2020. POS: HOME
[2020-01-05] MEDS: Aspirin Chewable 81 MG TAB PO SCH (20:50)
[2020-01-05] MEDS: Docusate 100 MG CAP PO PRN (20:51)
[2020-01-05] MEDS: Cyanocobalamin (Vitamin B-12) 1,000 MCG TAB PO SCH (20:51)
[2020-01-05] MEDS: BICALUTAMIDE 50 MG PO SCH (20:52)
[2020-01-05] MEDS: Enoxaparin Sodium 40 MG/0.4 ML SYRINGE SC SCH (20:53)
[2020-01-06] MEDS: Acetaminophen/Codeine 30-300mg Tablet PO PRN (01:15)
--- NOTE | 2020-01-06 01:55 | PRG ---
DATE OF SERVICE: 01/05/2020 SUBJECTIVE: The patient continues to have numbness on rib cage and weakness of bilateral lower extremities. He denies any discomfort. The patient's condition was discussed with his oncologist, Dr. Champion at [facility]. According to her, the patient was advised to undergo radiation treatment. She ordered a thoracic MRI outpatient and referral was sent to radiation oncologist, Dr. Brown, regarding multiple sclerotic bone metastasis. However, the patient failed to schedule those appointments. OBJECTIVE: VITAL SIGNS: Blood pressure of 104/56, temperature 99.4, pulse of 69, respirations of 20, and O2 saturation 93% at 1 L per nasal cannula. GENERAL: The patient is alert, oriented, not in respiratory distress. HEENT: Normocephalic and atraumatic. Pupils equal, reactive to light. NECK: Supple. Negative for lymphadenopathy. CHEST AND LUNGS: Symmetrical expansion, decreased breath sounds due to body habitus. ABDOMEN: Slightly distended. Normoactive bowel sounds. He has numbness on bilateral rib cage. MUSCULOSKELETAL: Spontaneous movement of bilateral upper extremities. Symmetrical. Positive for marked loss of strength of bilateral lower extremities. NEUROLOGIC: Oriented x3. Significant for numbness of the level of T6. Gait not assessed due to weakness of bilateral lower extremities. PSYCH: Depressed. Denies homicidal or suicidal ideations. IMAGING: Spiral CT of the thoracic spine showed no fracture or collapse of any vertebral bodies. There is diffuse sclerotic metastasis in all visible vertebra and visible portion of each rib. Spinal canal appears throughout. There are no areas of obvious mass or restriction of the canal. No enhancing lesions were seen within the canal. No masses of concern outside of vertebra are seen. All the vertebra at the T5 vertebra seems most involved by the sclerotic metastasis. Looking for any foraminal encroachment would be very difficulty in this case. IMPRESSION: Diffuse sclerotic metastasis without evidence of gross spinal cord canal compromise. Since the patient is experiencing neurological symptoms, MRI with and without contrast would be more sensitive to detect more subtle neurologic compromise. ASSESSMENT: 1. A 79-year-old presented with new onset of bilateral lower extremity weakness and numbness secondary to sclerotic bone metastasis from prostate cancer. 2. Congestive heart failure, systolic dysfunction with EF of 40%. 3. Coronary artery disease. 4. Hypertension. 5. Hyperlipidemia. 6. Anemia. 7. Acute renal insufficiency. 8. Noncompliance for treatment of prostate cancer. 9. Full code. PLAN: I had a long discussion with the patient and his about plan of care. The patient wants to proceed with radiation treatment. He refuses to be under hospice care. was advised to make an appointment with Dr. Brown, radiation oncologist at [facility] and to schedule thoracic MRI on Wednesday. is not able to take care of him and he is not safe to go back home. We will proceed with referral to long-term care facility preferably in [place]. Job ID: [id number]
[2020-01-06] MEDS: HYDROcodone/Acetaminophen 5/325 mg Tablet PO PRN (04:12)
[2020-01-06] MEDS ORDERED: Ketorolac Tromethamine 60 MG/2 ML VIAL IM PRN (05:28)
[2020-01-06] MEDS ORDERED: Ketorolac Tromethamine 60 MG/2 ML VIAL ONE (05:36)
[2020-01-06 05:56] LABS: Hemoglobin 8.4 g/dL (14.0-18.0); Platelet Count 199 thou/uL (130-400)
[2020-01-06 06:11] LABS: Anion Gap 15 mmol/L (10-20); BUN (Urea Nitrogen) 29 mg/dL (8.4-25.7); Calc. Creatinine Clearance 64 mL/min (70-130); Calcium 7.8 mg/dL (7.8-10.44); Carbon Dioxide 26 mmol/L (23-31); Chloride 99 mmol/L (98-107); Glucose 100 mg/dL (83-110); Potassium 3.9 mmol/L (3.5-5.1); Sodium 136 mmol/L (136-145)
[2020-01-06] MEDS: Bisacodyl 5 MG TAB PO PRN (08:27)
[2020-01-06] MEDS: Pregabalin 50 MG CAP PO SCH ×2 (08:27→21:00)
[2020-01-06] MEDS: Carvedilol 3.125 MG TAB PO SCH ×2 (08:28→21:01)
[2020-01-06] MEDS: Furosemide 20 MG TAB PO SCH (08:28)
[2020-01-06] MEDS: Tamsulosin HCl 0.4 MG CAP PO SCH ×2 (08:28→21:01)
[2020-01-06] MEDS ORDERED: ALPRAZolam 0.5 MG TAB PO PRN (09:23)
[2020-01-06] MEDS ORDERED: Ferrous Sulfate 325 MG TAB PO SCH (09:45)
[2020-01-06] MEDS: HYDROcodone/Acetaminophen 10/325 mg Tablet PO PRN (15:18)
[2020-01-06] MEDS: Cyanocobalamin (Vitamin B-12) 1,000 MCG TAB PO SCH (21:01)
[2020-01-06] MEDS: Aspirin Chewable 81 MG TAB PO SCH (21:01)
[2020-01-06] MEDS: Enoxaparin Sodium 40 MG/0.4 ML SYRINGE SC SCH (21:04)
[2020-01-06] MEDS: BICALUTAMIDE 50 MG PO SCH (21:08)
--- NOTE | 2020-01-06 21:44 | PRG ---
DATE OF SERVICE: 01/06/2020 SUBJECTIVE: The patient complained of moderate to severe pain on both rib cage and midback, not relieved with Tylenol and [place]. He was medicated with Toradol, he was able to sleep well after that. He has good appetite. The patient is in good spirit. Wants to get evaluated soon by radio oncologist at [facility]. OBJECTIVE: VITAL SIGNS: Blood pressure of 92/61, temperature 98.4, pulse of 75, respiratory rate of 18, O2 saturation 95% on room air. GENERAL: The patient is alert, oriented, not in distress. HEENT: Normocephalic and atraumatic. Pupils equally reactive to light. NECK: Supple. Negative for lymphadenopathy. CHEST AND LUNGS: Symmetrical expansion. Clear to auscultation. CARDIOVASCULAR: Regular rate, rhythm. Negative for murmur. ABDOMEN: Distended, normoactive bowel sounds. Has numbness from ribcage down. MUSCULOSKELETAL: Spontaneous movement of bilateral upper extremities. Positive for movement of right 1st toe. NEUROLOGIC: Oriented x3. Significant for numbness at T6. Gait is not assessed due to weakness of bilateral extremities. ASSESSMENT: 1. A 79-year-old, presented with sudden onset of numbness from T6 level with gross bilateral lower extremity weakness secondary to thoracic sclerotic bone lesions with prostatic cancer. 2. Congestive heart failure, systolic dysfunction with EF of 45%. 3. Coronary artery disease. 4. Hypertension. 5. Hyperlipidemia. 6. Urinary retention secondary to #1. 7. Noncompliance for treatment of prostate cancer. 8. Full code. PLAN: 1. Continue present nursing care. 2. Start Lyrica 100 mg p.o. b.i.d. 3. Send referral for long-term care placement for easy accessibility once patient starts radiation treatment for prostate cancer. 4. Refer to case management for discharge planning. Job ID: [id number]
[2020-01-07] MEDS: HYDROcodone/Acetaminophen 10/325 mg Tablet PO PRN ×2 (05:49→13:27)
[2020-01-07] MEDS: Bisacodyl 5 MG TAB PO PRN (08:32)
[2020-01-07] MEDS: Pregabalin 50 MG CAP PO SCH ×2 (08:32→20:53)
[2020-01-07] MEDS: Milk Of Magnesia 30 ML UDCUP PO PRN (08:32)
[2020-01-07] MEDS: Tamsulosin HCl 0.4 MG CAP PO SCH ×2 (08:33→20:55)
[2020-01-07] MEDS: Ferrous Sulfate 325 MG TAB PO SCH (08:33)
[2020-01-07] MEDS: Carvedilol 3.125 MG TAB PO SCH ×2 (08:34→20:54)
[2020-01-07] MEDS: Furosemide 20 MG TAB PO SCH (08:41)
[2020-01-07] MEDS: Aspirin Chewable 81 MG TAB PO SCH (20:53)
[2020-01-07] MEDS: Enoxaparin Sodium 40 MG/0.4 ML SYRINGE SC SCH (20:53)
[2020-01-07] MEDS: Cyanocobalamin (Vitamin B-12) 1,000 MCG TAB PO SCH (20:55)
[2020-01-07] MEDS: BICALUTAMIDE 50 MG PO SCH (20:57)
[2020-01-08] MEDS: Acetaminophen 325 MG TAB PO PRN ×2 (04:18→16:11)
[2020-01-08 05:38] LABS: #Basophils 0.1 thou/uL (0.0-0.2); #Eosinphils 0.1 thou/uL (0.0-0.7); #Lymphocytes 1.2 thou/uL (1.20-3.40); #Monocytes 0.8 thou/uL (0.11-0.59); #Neutrophils 5.9 thou/uL (1.40-6.50); %Basophils 1.2 % (0.0-1.0); %Lymphocytes 15.3 % (21.0-51.0); %Monocytes 9.5 % (0.0-10.0); %Neutrophils 73.1 % (42.0-75.0); Hemoglobin 8.2 g/dL (14.0-18.0); Mean Corpuscular HGB CONC 29.2 g/dL (32.0-36.0); Mean Corpuscular Hemoglobin 24.6 pg (27.0-31.0); Mean Corpuscular Volume 84.2 fL (78.0-98.0); Mean Platelet Volume 8.1 fL (7.4-10.4); Platelet Count 227 thou/uL (130-400); RBC Distribution Width 19.7 % (11.5-14.5); Red Blood Cell (RBC) Count 3.34 mill/uL (4.70-6.10); White Blood Cell (WBC) Count 8.1 thou/uL (4.8-10.8)
[2020-01-08 06:04] LABS: Anion Gap 17 mmol/L (10-20); BUN (Urea Nitrogen) 38 mg/dL (8.4-25.7); Calc. Creatinine Clearance 57 mL/min (70-130); Calcium 7.8 mg/dL (7.8-10.44); Carbon Dioxide 26 mmol/L (23-31); Chloride 94 mmol/L (98-107); Glucose 128 mg/dL (83-110); Potassium 4.4 mmol/L (3.5-5.1); Sodium 133 mmol/L (136-145)
[2020-01-08 06:06] LABS: Anisocytosis MODERATE=16-30 cells (100X) (0-5/hpf); MDiff Complete? YES; Platelet Morphology Comment Appears Adequate; Polychromasia SLIGHT = 2-3 cells (100X) (0-2/hpf)
[2020-01-08] MEDS: Sodium Chloride 0.9% 1,000 ML IV SCH (08:15)
[2020-01-08] MEDS: Pregabalin 50 MG CAP PO SCH (09:24)
[2020-01-08] MEDS: Furosemide 20 MG TAB PO SCH (09:26)
[2020-01-08] MEDS: Ferrous Sulfate 325 MG TAB PO SCH (09:26)
[2020-01-08] MEDS: Carvedilol 3.125 MG TAB PO SCH ×2 (09:26→21:12)
[2020-01-08] MEDS: Tamsulosin HCl 0.4 MG CAP PO SCH ×2 (09:26→21:12)
[2020-01-08] MEDS: Docusate 100 MG CAP PO PRN (09:26)
[2020-01-08] MEDS: Milk Of Magnesia 30 ML UDCUP PO PRN (09:28)
[2020-01-08] MEDS: Bisacodyl 5 MG TAB PO PRN (16:17)
[2020-01-08] MEDS ORDERED: Bisacodyl 10 MG SUPP PR PRN (17:06)
--- NOTE | 2020-01-08 18:30 | RAD ---
PORTABLE CHEST: Date: 01-08-2020 Comparison: 11-06-2019 chest radiograph. Additionally I reviewed the recent CT of the thoracic spine do ne three days ago which shows good portions of the lungs. FINDINGS: No gross acute infiltrates were seen. Some minor streaking in the bases appears to be scarring lookin g at the CT exam. There is certainly no large scale lobar infiltrate or effusion. If either detail is needed, one could do a noncontrast CT to study the lungs more closely. Cardiomegaly is about the tico e as before. There is no clear congestive change. IMPRESSION: No definite acute finding. POS: HOME
--- NOTE | 2020-01-08 20:05 | PRG ---
DATE OF SERVICE: 01/07/2020 SUBJECTIVE: He denies any complaints, he slept pretty well, appetite is at baseline. According to the nurses, he is not drinking as much. Still has no bowel movement since admission. OBJECTIVE: VITAL SIGNS: Blood pressure of 93/54, temperature of 99, pulse rate of 83, RR of 18, and O2 saturation 94% on room air. GENERAL: The patient is drowsy, but arousable, not in respiratory distress. HEENT: Normocephalic and atraumatic. Pupils are equal and reactive to light. NECK: Supple. Negative for lymphadenopathy. CHEST AND LUNGS: Symmetrical expansion, decreased breath sounds due to body habitus. CARDIOVASCULAR: Regular rate and rhythm. Negative for murmur. ABDOMEN: Distended, hyperactive bowel sounds. MUSCULOSKELETAL: Spontaneous movement of bilateral upper extremity, positive for movement of right first toe. Gait is not assessed due to weakness of bilateral extremities. ASSESSMENT: 1. A 79-year-old, presented with sudden onset of numbness from T6 level with gross bilateral lower extremity weakness secondary to thoracic sclerotic bone lesions, diffuse with prostate cancer. 2. Congestive heart failure, systolic dysfunction, EF of 45%. 3. Coronary artery disease. 4. Hypertension. 5. Hyperlipidemia. 6. Urinary retention secondary to #1. 7. Constipation. 8. Anemia due to chronic disease. 9. Noncompliance for treatment for prostate cancer. 10. Full code. PLAN: 1. Continue present nursing care. 2. Continue medications. 3. Transfer to long-term care facility for easy accessibility once the patient start radiation for prostate cancer at [facility]. Follow up Case Management for discharge planning. Job ID: [id number]
[2020-01-08] MEDS: Docusate 100 MG CAP PO SCH (21:11)
[2020-01-08] MEDS: Aspirin Chewable 81 MG TAB PO SCH (21:11)
[2020-01-08] MEDS: BICALUTAMIDE 50 MG PO SCH (21:12)
[2020-01-08] MEDS: Enoxaparin Sodium 40 MG/0.4 ML SYRINGE SC SCH (21:12)
[2020-01-08] MEDS: Cyanocobalamin (Vitamin B-12) 1,000 MCG TAB PO SCH (21:12)
[2020-01-09] MEDS: Acetaminophen 325 MG TAB PO PRN (00:56)
[2020-01-09] MEDS: Sodium Chloride 0.9% 1,000 ML IV SCH (04:26)
[2020-01-09 04:53] LABS: #Basophils 0.1 thou/uL (0.0-0.2); #Eosinphils 0.1 thou/uL (0.0-0.7); #Lymphocytes 1.2 thou/uL (1.20-3.40); #Monocytes 0.8 thou/uL (0.11-0.59); #Neutrophils 6.2 thou/uL (1.40-6.50); %Basophils 0.7 % (0.0-1.0); %Lymphocytes 14.8 % (21.0-51.0); %Neutrophils 74.5 % (42.0-75.0); Hemoglobin 7.1 g/dL (14.0-18.0); Mean Corpuscular HGB CONC 29.9 g/dL (32.0-36.0); Mean Corpuscular Hemoglobin 25.1 pg (27.0-31.0); Mean Corpuscular Volume 84.1 fL (78.0-98.0); Mean Platelet Volume 7.6 fL (7.4-10.4); Platelet Count 229 thou/uL (130-400); RBC Distribution Width 19.4 % (11.5-14.5); Red Blood Cell (RBC) Count 2.84 mill/uL (4.70-6.10); White Blood Cell (WBC) Count 8.4 thou/uL (4.8-10.8)
[2020-01-09 05:15] LABS: ALT (SGPT) 14 U/L (8-55); AST (SGOT) 25 U/L (5-34); Albumin 2.7 g/dL (3.4-4.8); Alkaline Phosphatase 412 U/L (40-110); Anion Gap 16 mmol/L (10-20); BUN (Urea Nitrogen) 43 mg/dL (8.4-25.7); Bilirubin, Total 0.4 mg/dL (0.2-1.2); Calc. Creatinine Clearance 57 mL/min (70-130); Calcium 7.7 mg/dL (7.8-10.44); Carbon Dioxide 26 mmol/L (23-31); Chloride 96 mmol/L (98-107); Globulin 2.7 g/dL (2.4-3.5); Glucose 104 mg/dL (83-110); Potassium 4.5 mmol/L (3.5-5.1); Protein, Total 5.4 g/dL (5.8-8.1); Sodium 133 mmol/L (136-145)
[2020-01-09 07:33] LABS: Anisocytosis SLIGHT = 6-15 cells (100X) (0-5/hpf); Elliptocytes SLIGHT = 2-5 cells (100X) (0-1/hpf); Hypochromia SLIGHT = 6-15 cells (100X) (0-5/hpf); MDiff Complete? YES; Macrocytosis SLIGHT = 6-15 cells (100X) (0-5/hpf); Microcytosis SLIGHT = 6-15 cells (100X) (0-5/hpf); Platelet Morphology Comment Appears Adequate; Polychromasia SLIGHT = 2-3 cells (100X) (0-2/hpf); Spherocytes SLIGHT = 1-5 cells (100X) (None Seen)
[2020-01-09] MEDS: Docusate 100 MG CAP PO SCH (08:45)
[2020-01-09] MEDS: Carvedilol 3.125 MG TAB PO SCH (08:45)
[2020-01-09] MEDS: Tamsulosin HCl 0.4 MG CAP PO SCH (08:45)
[2020-01-09] MEDS: Ferrous Sulfate 325 MG TAB PO SCH (08:45)
[2020-01-09] MEDS: Milk Of Magnesia 30 ML UDCUP PO PRN (08:46)
[2020-01-09] MEDS: HYDROcodone/Acetaminophen 10/325 mg Tablet PO PRN (09:00)
[2020-01-09] MEDS ORDERED: Dexamethasone 4 mg/ml Vial SLOW IVP SCH (12:30)
[2020-01-09] MEDS ORDERED: Dexamethasone 4 mg/ml Vial ONE (12:42)
[2020-01-09] MEDS ORDERED: Ondansetron ODT 4 MG TAB SL PRN (12:57)
[2020-01-09] MEDS ORDERED: cefTRIAXone\\ROCEPHIN 1 GM in Sodium Chloride 0.9% 100 ML IVPB SCH (13:00)
[2020-01-09] MEDS ORDERED: Vancomycin HCl 1 GM in Sodium Chloride 0.9% 250 ML 250 ML IVPB SCH (14:00)
[2020-01-09] MEDS ORDERED: Furosemide 20 MG/2 ML VIAL SLOW IVP SCH (15:00)
[2020-01-09 15:41] VITALS: BP 103/60; TEMP 98
[2020-01-09] MEDS ORDERED: cefTRIAXone\\ROCEPHIN 1 GM VIAL IVPB SCH (21:00)
--- NOTE | 2020-01-10 06:02 | PRG ---
DATE OF SERVICE: 01/08/2020 SUBJECTIVE: The patient has been very drowsy, weak, has poor appetite, and been running fever since this morning. His stated that he is more confused. He called her around 2 a.m. and was wanting to go home. He has not had any bowel movement. OBJECTIVE: VITAL SIGNS: Temperature of 101.4, pulse of 84, respiratory rate of 20, O2 saturation of 92% on room air, and blood pressure of 99/51. GENERAL: The patient is drowsy, but arousable with commands, slightly tachypneic. HEENT: Normocephalic and atraumatic. Positive for conjunctival pallor. NECK: Supple. Negative for lymphadenopathy. CHEST AND LUNGS: Symmetrical expansion, decreased breath sounds due to body habitus. CARDIOVASCULAR: Regular rate and rhythm. Negative for murmur. ABDOMEN: Distended. Hyperactive bowel sounds. Negative for rebound or deep tenderness. MUSCULOSKELETAL: Positive for spontaneous movement of bilateral upper extremities. Gait not assessed due to weakness of bilateral extremities. LABORATORY DATA: 1. CBC; WBC of 8.1, hemoglobin of 8.2, hematocrit of 28, and platelet count of 227. 2. BMP showed sodium of 133, potassium of 4.4, chloride of 94, carbon dioxide of 26, anion gap of 17, BUN of 38, creatinine of 1.5, GFR of 45, glucose of 128, and calcium of 7.8. 3. Chest x-ray, no gross acute infiltrates seen, some minor streaking in the bases, appears to be scarring. Looking through the CT scan, there is certainly no large scale of lobar infiltrates or effusion. There are no clear congestive changes. No acute findings. ASSESSMENT: 1. A 79-year-old, presented with sudden onset of numbness from T6 level with gross bilateral lower extremity weakness secondary to thoracic cirrhotic bone lesions, diffuse with prostate cancer. 2. New onset of confusion. 3. Fever. 4. Acute anemia, symptomatic. 5. Congestive heart failure, systolic dysfunction, EF of 45%. 6. Coronary artery disease. 7. Hypertension. 8. Hyperlipidemia. 9. Urinary retention secondary to #1. 10. Constipation. 11. Noncompliance for treatment of prostate cancer with metastasis. 12. Full code. PLAN: 1. Discontinue Lyrica and other sedating medication. 2. Continue fluids, normal saline at 50 mL/h, monitor I's and O's. 3. Blood cultures ordered. 4. Discontinue furosemide due to low blood pressure. 5. Transfer to [facility] if condition worsens, per request of . wants to proceed with radiation treatment as advised by Dr. Champion (oncologist) at [facility]. 6. Discharge planning with Case Management. Job ID: [id number]
--- NOTE | 2020-01-12 22:55 | DIS ---
DATE OF ADMISSION: 01/03/2020 DATE OF DISCHARGE: 01/09/2020 FINAL DIAGNOSES: 1. 79-year-old presented with sudden onset of numbness from T6 level with gross bilateral lower extremity weakness secondary to thoracic sclerotic bone lesions, diffuse with prostate cancer. 2. New onset of confusion. 3. Fever. 4. Acute anemia, symptomatic. 5. Congestive heart failure, systolic dysfunction with EF 45%. 6. Coronary artery disease. 7. Hypertension. 8. Hyperlipidemia. 9. Urinary retention secondary to #1. 10. Constipation. 11. Noncompliance for treatment of prostate cancer with metastasis. 12. Full code. HISTORY OF PRESENT ILLNESS/COURSE IN THE SMITH: Mr. Thacker is a 79-year-old gentleman with coronary artery disease, ischemic cardiomyopathy with EF of 40%, hyperlipidemia, hypertension, and prostate cancer with metastasis to multiple sites including bone and spine on Casodex under the care of Dr. Champion. His condition started in 2018 when he presented to [facility] with significantly high PSA of 852, it was consistent with prostate cancer with metastatic lesions. He did not have a prior biopsy. He was seen by Dr. Martin in April of 2017, he was advised Lupron, immunotherapy (Zytiga) and prednisone. However, he was lost to follow up and admitted that he cannot afford Zytiga. The patient presented to [facility] (formerly [facility]] on 09/14/2017, complaining of bilateral lower extremity discomfort described as burning pain down the back of his legs. He was seen by Dr. Peralta, Neurosurgery, and discussed with the patient that this symptoms were likely secondary to metastatic disease. He was also seen by Dr. King and advised him to initiate palliative therapy for metastatic prostate cancer. He was offered prostate biopsy, but he declined. He was repeatedly advised by the specialist regarding poor prognosis of his prostate cancer due to widespread metastatic lesions. He was referred for palliative care. Further review of medical records, which showed multiple imaging consisting in the CT scan febrile of 2017, demonstrating extensive lymphadenopathy of periaortic, pericaval iliac nodes, multiple sclerotic areas of the spine and pelvis consistent with diffuse metastatic disease, presence of L4-L5 sclerosis. CT scan on 09/13/2017 showed multiple bilateral lung nodules consistent with widespread osseous metastatic disease. The prostate was irregular and lobulated. Mass seen in the bladder extending from prostate consistent with local invasion. The patient also had an MRI on 08/30/2017 that showed abnormal signal of L5 vertebral body suspicious for pathologic fracture from bony metastatic disease. He had marked lymphadenopathy. According to patient, since then, he had been confined to a wheelchair. However, he thought that this was just secondary to advanced bilateral knee osteoarthritis. According to patient, his specialists from [facility] refused to prescribe him Casodex. Hence, he transferred care to [facility] with Dr. Champion (Oncologist). He had not had any additional imaging recently. The patient was admitted for acute on chronic CHF recently and had CT of the abdomen and pelvis that showed bilateral pleural effusion, resolution of pleural-based nodular lesion on the left lung. However, he had interval development of prominent nodular thickening involving adrenal glands. There were also noted diffuse osseous metastatic disease. The patient was under home health for physical therapy. He was also advised recently by his PCP to undergo cardiac outpatient rehab. Unfortunately, prior to admission, he had difficulty with transfers and sudden weakness, hence evaluation at the ED and subsequent admission on January 03, 2020, for possible rehab. During his stay in the hospital, he had marked numbness from T6 level with gross bilateral lower extremity weakness. He had low-grade fever two days prior to his transfer, and developed increasing drowsiness and poor appetite. His blood pressure remained low throughout his stay, hence IV fluid repletion was initiated. Persistence of fever and altered mental status of the patient required higher level of care, the patient's consulted. The patient's asked for scheduled appointment with radio oncologist at [facility]. However, they told her that they had to get an approval from the insurance regarding radiation treatment if he stays in the long term. The patient's then requested for transfer to [facility]. DISPOSITION: Discharge to [facility] in [place]. MEDICATIONS: 1. Colace 100 mg b.i.d. 2. Dexamethasone 10 mg per IV x1. 3. Ferrous sulfate 325 mg daily. 4. Lovenox 40 mg at bedtime. 5. Normal saline 50 mL/h. 6. Rocephin 1 g per IV q.12 hours. 7. Tylenol 650 mg every 4 hours. 8. Vancomycin 1 g per IV q.12 hours. 9. Zofran 4 mg sublingual every 6 hours as needed. 10. Flomax 0.4 mg b.i.d. 11. Vitamin B12 of 1000 mcg at bedtime. 12. Coreg 3.125 mg b.i.d. 13. Aspirin 81 mg at bedtime. CONDITION: Guarded. CODE STATUS: Full code. Job ID: [id number]
== END 2020-01-09 15:34 | disposition short-term general hospital (02) ==
LOC: BURERS 18:14 → OBSVTOIN 20:45 → INTOOBSV 20:45 → BURMED 20:45 → UNDODISIN 01-09 15:34
PROVIDERS: ADMIT Family Medicine; ATTEND Family Medicine
DX: C61 Malignant neoplasm of prostate (principal); C79.51 Secondary malignant neoplasm of bone; G95.29 Other cord compression; R53.1 Weakness; R41.0 Disorientation, unspecified; R50.9 Fever, unspecified; D63.0 Anemia in neoplastic disease; I11.0 Hypertensive heart disease with heart failure; I50.20 Unspecified systolic (congestive) heart failure; I25.10 Atherosclerotic heart disease of native coronary artery without angina pectoris; E78.5 Hyperlipidemia, unspecified; R33.8 Other retention of urine; K59.00 Constipation, unspecified; N17.9 Acute kidney failure, unspecified; I25.5 Ischemic cardiomyopathy; M48.061 Spinal stenosis, lumbar region without neurogenic claudication; I25.2 Old myocardial infarction; M79.662 Pain in left lower leg; M79.661 Pain in right lower leg; Z91.14 Patient's other noncompliance with medication regimen; Z79.82 Long term (current) use of aspirin; Z79.899 Other long term (current) drug therapy; Z88.8 Allergy status to other drugs, medicaments and biological substances; Z20.828 Contact with and (suspected) exposure to other viral communicable diseases
CPT/HCPCS: 36415; 51701; 70450; 71045; 72100; 72129; 80048; 80053; 81003; 82553; 83605; 83690; 84484; 85014; 85018; 85025; 85049; 86140; 86850; 86900; 86901; 87040; 87635; 93005; 96372; 96374; 96375; G0378; J0696; J1100; J1650; J1885; J3370; J3490; J7050; Q0162; U0003

== ENCOUNTER 2020-03-28 17:14 | Emergency (ER) | payer MEDICARE, BC ==
[2020-03-28] MEDS ORDERED: Iopamidol 370 76% 100 ML VIAL IV ONE (17:15)
[2020-03-28 18:41] LABS: Hemoglobin 10.7 g/dL (14.0-18.0); Mean Corpuscular HGB CONC 29.7 g/dL (32.0-36.0); Mean Corpuscular Hemoglobin 29.1 pg (27.0-31.0); Platelet Count 237 thou/uL (130-400); RBC Distribution Width 21.8 % (11.5-14.5); Red Blood Cell (RBC) Count 3.67 mill/uL (4.70-6.10); White Blood Cell (WBC) Count 7.6 thou/uL (4.8-10.8)
[2020-03-28 18:43] LABS: #Lymphocytes 1.5 thou/uL (1.20-3.40); #Monocytes 0.3 thou/uL (0.11-0.59); #Neutrophils 5.8 thou/uL (1.40-6.50); %Basophils 0.4 % (0.0-1.0); %Eosinophils 0.2 % (0.0-10.0); %Lymphocytes 19.4 % (21.0-51.0); %Monocytes 4.5 % (0.0-10.0); %Neutrophils 75.6 % (42.0-75.0)
[2020-03-28 18:47] LABS: MDiff Complete? YES
[2020-03-28 18:52] LABS: ALT (SGPT) 11 U/L (8-55); AST (SGOT) 17 U/L (5-34); Albumin 2.4 g/dL (3.4-4.8); Alkaline Phosphatase 166 U/L (40-110); Anion Gap 14 mmol/L (10-20); BUN (Urea Nitrogen) 25 mg/dL (8.4-25.7); Bilirubin, Total 0.5 mg/dL (0.2-1.2); Calc. Creatinine Clearance 0 mL/min (70-130); Carbon Dioxide 24 mmol/L (23-31); Chloride 106 mmol/L (98-107); Globulin 2.5 g/dL (2.4-3.5); Glucose 81 mg/dL (83-110); Potassium 4.2 mmol/L (3.5-5.1); Protein, Total 4.9 g/dL (5.8-8.1); Sodium 140 mmol/L (136-145)
[2020-03-28 19:12] LABS: CKMB 1.1 ng/mL (0-6.6)
[2020-03-28] MEDS ORDERED: Aspirin Chewable 81 MG TAB ONE (19:55)
[2020-03-28] MEDS ORDERED: Diltiazem 125 MG/25 ML ONE (19:56)
[2020-03-28] MEDS ORDERED: Sodium Chloride 0.9% 100 ML ONE (20:01)
--- NOTE | 2020-03-28 20:25 | CT ---
CT ANGIO OF THE CHEST 03/28/[address] of the chest was done after a bolus of IV contrast with MIP reconstructions in various plan es. The patient is known to be COVID positive and is also known to have bony metastases. There is good opacification of the pulmonary arteries. No internal defects were seen to suggest embol i in any of the large to medium sized branches. There is, however, collapse of the right lower lobe. There is some surrounding fluid as well. No pericardial effusion was seen. The heart is enlarged. The aorta shows no aneurysm or dissection. Arteriosclerotic changes seen within it and in the coronary v essels. The left lung is relatively clear and only a small amount of pleural fluid is seen on that si de. Films of the upper abdomen showed no acute change. There is enlargement of the left adrenal gland whi ch could be affected by tumor. Sclerotic bony metastases are evident in the spine as well as the xena ral heads and probably of the right scapula. IMPRESSION: 1. No evidence of pulmonary embolism. 2. Collapsed right lower lobe with some surrounding fluid. 3. Bony sclerotic metastases which have been mentioned on prior studies. Preliminary report called to Dr. Heredia at 2005 on 03/28/20. POS: HOME
[2020-03-28] MEDS ORDERED: Furosemide 40 MG/4 ML VIAL ONE (22:08)
[2020-03-28] MEDS ORDERED: Nitroglycerin 2% Ointment 1 INCH/1 GM Packet ONE (22:08)
[2020-04-07 04:41] LABS: Actual Bicarbonate (HCO3a) 25.9 mEq/L (22-28); Base Excess (BEa) 3.7 mEq/L (-2.0 to +3.0); CO2 Tension 30.8 mmHg (35.0-45.0); Calcium, Ionized (arterial) 1.03 mmol/L (1.12-1.30); Carboxyhemoglobin (COHb) 0.3 gm% (0.0-3.0); Potassium - ABG Lab 3.98 mmol/L (3.70-5.30); pH, Arterial 7.54 (7.35-7.45)
[2020-04-07 05:54] LABS: O2 Tension (PaO2), arterial 48.8 mmHg (> 70.0); Puncture Site RRA
== END 2020-03-28 22:28 | disposition short-term general hospital (02) ==
LOC: BURERS 17:14
DX: U07.1 COVID-19 (principal); I48.91 Unspecified atrial fibrillation; I11.0 Hypertensive heart disease with heart failure; I50.9 Heart failure, unspecified; I25.2 Old myocardial infarction; E78.5 Hyperlipidemia, unspecified; Z87.442 Personal history of urinary calculi; Z85.46 Personal history of malignant neoplasm of prostate; Z79.82 Long term (current) use of aspirin; Z79.899 Other long term (current) drug therapy
CPT/HCPCS: 36600; 71275; 80053; 82553; 82805; 83880; 84484; 85025; 93005; 96365; 96366; 96376; J1940; J3490; Q9967

== ENCOUNTER 2020-05-02 17:54 | Outpatient (CLI) | payer MEDICARE, BC ==
[2020-05-02 18:17] LABS: Mean Corpuscular HGB CONC 30.8 g/dL (32.0-36.0); Platelet Count 158 thou/uL (130-400); RBC Distribution Width 22.1 % (11.5-14.5); Red Blood Cell (RBC) Count 2.74 mill/uL (4.70-6.10); White Blood Cell (WBC) Count 4.2 thou/uL (4.8-10.8)
[2020-05-02 18:26] LABS: ALT (SGPT) 19 U/L (8-55); AST (SGOT) 11 U/L (5-34); Albumin 2.2 g/dL (3.4-4.8); Alkaline Phosphatase 135 U/L (40-110); Anion Gap 12 mmol/L (10-20); BUN (Urea Nitrogen) 27 mg/dL (8.4-25.7); Bilirubin, Total 0.2 mg/dL (0.2-1.2); Calc. Creatinine Clearance 0 mL/min (70-130); Calcium 7.3 mg/dL (7.8-10.44); Carbon Dioxide 23 mmol/L (23-31); Globulin 1.9 g/dL (2.4-3.5); Glucose 197 mg/dL (83-110); Protein, Total 4.1 g/dL (5.8-8.1)
[2020-05-02 19:20] LABS: Chloride 110 mmol/L (98-107); Potassium 4.4 mmol/L (3.5-5.1); Sodium 141 mmol/L (136-145)
[2020-05-02 19:23] LABS: #Lymphocytes 0.5 thou/uL (1.20-3.40); #Monocytes 0.2 thou/uL (0.11-0.59); #Neutrophils 3.5 thou/uL (1.40-6.50); %Basophils 0.3 % (0.0-1.0); %Eosinophils 0.1 % (0.0-10.0); %Lymphocytes 12.2 % (21.0-51.0); %Monocytes 3.9 % (0.0-10.0); %Neutrophils 83.6 % (42.0-75.0); Anisocytosis SLIGHT = 6-15 cells (100X) (0-5/hpf); MDiff Complete? YES; Macrocytosis SLIGHT = 6-15 cells (100X) (0-5/hpf); Ovalocytes SLIGHT = 2-5 cells (100X) (0-1/hpf); Platelet Morphology Comment Appears Adequate
== END 2020-05-02 17:55 | disposition home or self-care (01) ==
LOC: BURMANOR 17:54
PROVIDERS: ATTEND Family Medicine
DX: K92.2 Gastrointestinal hemorrhage, unspecified (principal)
CPT/HCPCS: 80053; 85025